=== PATIENT | female | born 1990 | race Caucasian/White ===

== ENCOUNTER 2019-02-23 08:14 | Day surgery (SDC) | payer OTHER ==
[2019-02-23 08:49] VITALS: BP 121/78; TEMP 98.8
[2019-02-23 08:51] VITALS: BMI 30.4
[2019-02-23] MEDS ORDERED: hydrALAZINE 20 MG/ML VIAL SLOW IVP PRN (09:16)
--- NOTE | 2019-02-23 09:25 | PDOC.FPROB ---
FMR OB H&P: HPI - History of Present Illness Chief Complaint: Contractions Indentification: 28 year old at 37.6 wks History of Present Illness: 28 year old at 37.6 wks presents with contractions since 19:00 last night. She states that they were occurring every 2-3 minutes and were very painful, rated as 7/10. She does endorse sexual intercourse prior to contractions. Since coming to the hospital, her contractions have decreased in frequency and intensity, occurring every 10 minutes and rated as a 4/10. Cervical exam in clinic was 1 cm last . Cervical exam today /-. Patient endorses movement. She did note some minor spotting on toilet paper when using the restroom. She denies any leaking of fluid, vaginal discharge. Primary Care Physician: Dr. Cobb FMR OB H&P: Current - Care : 1 Para: 0 Gestational age: 37.6 wks Due date: 03/10/2019 FMR OB H&P: History - Past Medical History PMH: Denies any significant PMH - OB History OB History: G1 - [employer] History [employer] History: Denies history of STD's or PID. - Surgical History Sx History: Right ovarian cyst removal - Social History Social History: Denies alcohol, tobacco, or drug use - Family History Family History: Denies any significant FH FMR OB H&P: Medications - Current Home Medications: Medication Instructions Recorded Confirmed Type Vitamin 1 tablet PO DAILY 02/23/19 02/23/19 History Allergies/Adverse Reactions: Allergies Allergy/AdvReac Type Severity Reaction Status Date / Time cefaclor [From [facility]] Allergy Rash Verified 02/23/19 08:50 FMR OB H&P: ROS - Review of Systems General: denies: fever/chills, weight/appetite/sleep changes Eyes: denies: vision changes, double vision ENT: denies: nasal congestion, sore throat Cardiovascular: denies: chest pain, palpitation, edema Respiratory: denies: cough, congestion, shortness of breath Gastrointestinal: reports: abdominal pain. denies: nausea, vomiting, diarrhea Genitourinary (Female): reports: contractions. denies: dysuria, vaginal discharge, vaginal pain, vaginal bleeding, vaginal pressure Musculoskeletal: denies: pain, stiffness Neurologic: denies: numbness, syncope, seizures Integumentary: denies: itching, rash, lesions Hematologic/Lymphatic: denies: prolonged or excessive bleeding Psychological: denies: depression, anxiety FMR OB H&P: Vital Signs - Maternal Vital signs: Vital Signs - First Documented Temp Pulse Resp BP 98.8 F 110 H 18 121/78 02/23/19 08:32 02/23/19 08:32 02/23/19 08:32 02/23/19 08:32 Pulse prior to D/C 105 - Heart Tones Baseline: 140 Variability: moderate Acceleration: present Deceleration: absent (Questionable variable, but the decrease in HR was coming off an acceleration) Category: category 1 [place] contractions every: q10 min FMR OB H&P: Physical Exam - Physical Exam General: NAD, awake, alert and oriented HEENT: MMM, grossly normal vision, grossly normal hearing Heart: pulses present Deviation from normal: Tachycardic General: no respiratory distress Abdomen: soft, gravid, non-tender Musculoskeletal: pulses present, FROM in all four extremities Neurological: no tremor, no focal deficit Skin: no rash, capillary refill <2 seconds Lymphatic: no unusual bruising or bleeding Psychiatric: intact recent and remote memory, good judgement and insight, normal mood and affect - Pelvic Exam SVE: FMR OB H&P: A/P - Problem List (1) Term Status: Acute Code(s): Z34.90 - ENCNTR FOR SUPRVSN OF NORMAL , UNSP, UNSP TRIMESTER Disposition: 28 year old at 37.6 wks presents with contractions TIUP - Does not appear to be in labor at this time; cervical exam unchanged from clinic visit on 02/20 () - Frequency and intensity of contractions last night likely 2/2 intercourse - Counseled extensively on return/labor precautions - No complications in current - Next appt with Dr. Cobb on , 02/27; plan for scheduled eIOL at that time per patient Dispo: Discharge home with labor precautions. Discussion: Date/Time: 02/23/19 0920 This H&P was discussed with Dr. Ortega who agrees with the above documentation and plan. Signature: Jessica Mccain, PGY-3 Addendum - Attending - Attending Attestation Date/Time: 02/23/19 [id number] I personally evaluated the patient and discussed the management with Dr. Mccain. I agree with the History, Examination, Assessment and Plan documented above.
== END 2019-02-23 09:24 | disposition home or self-care (01) ==
LOC: L&D/OP 08:14
PROVIDERS: ATTEND Student in an Organized Health Care Education/Training Program
DX: O47.1 False labor at or after 37 completed weeks of gestation (principal); Z3A.37 37 weeks gestation of pregnancy; Z88.1 Allergy status to other antibiotic agents
CPT/HCPCS: 99282

== ENCOUNTER 2019-02-24 15:53 | Inpatient (IN) | payer OTHER ==
[~2019-02-24 15:53] MED LIST: Lidocaine 2% MPF 10 ML AMP (For Epidural Use) ONE
[2019-02-24 16:49] VITALS: BMI 29.5
[2019-02-24 17:01] LABS: Hemoglobin 12.2 g/dL (12.0-16.0); Mean Corpuscular HGB CONC 32.4 g/dL (32.0-36.0); Mean Corpuscular Hemoglobin 29.1 pg (27.0-31.0); Mean Corpuscular Volume 89.8 fL (78.0-98.0); Mean Platelet Volume 7.9 fL (7.4-10.4); Platelet Count 190 thou/uL (130-400); RBC Distribution Width 11.9 % (11.5-14.5); White Blood Cell (WBC) Count 13.7 thou/uL (4.8-10.8)
[2019-02-24] MEDS ORDERED: Butorphanol Tartrate 1 MG/ML VIAL ONE (17:11)
[2019-02-24] MEDS ORDERED: Acetaminophen 500 MG TAB PO PRN (17:18)
[2019-02-24] MEDS ORDERED: Ondansetron PF 4 MG/2 ML Vial IVP PRN (17:18)
[2019-02-24] MEDS ORDERED: Butorphanol Tartrate 1 MG/ML VIAL SLOW IVP PRN (17:18)
[2019-02-24] MEDS ORDERED: Promethazine HCl 25 MG/ML VIAL IM PRN (17:18)
[2019-02-24] MEDS ORDERED: hydrALAZINE 20 MG/ML VIAL SLOW IVP PRN (17:18)
[2019-02-24] MEDS ORDERED: Fentanyl 4 mcg/Bup 0.1% Cadd 100 ML ONE (17:20)
[2019-02-24] MEDS: Lactated Ringer's 1,000 ML IV SCH ×3 (17:28→19:42)
[2019-02-24] MEDS ORDERED: Carboprost 250 MCG/ML AMP IM PRN (17:30)
[2019-02-24] MEDS ORDERED: NS w/ Oxytocin 10 units 500 ML IV SCH ×2 (17:30)
[2019-02-24] MEDS ORDERED: Misoprostol 200 MCG TAB RC PRN (17:30)
[2019-02-24] MEDS ORDERED: Lidocaine 1% (PF) 30 ML VIAL SC PRN (17:30)
[2019-02-24] MEDS ORDERED: Ibuprofen 800 MG TAB PO PRN (17:30)
[2019-02-24] MEDS ORDERED: Methylergonovine 0.2 MG/ML VIAL IM PRN (17:30)
--- NOTE | 2019-02-24 17:36 | PDOC.LDHP ---
Labor and Delivery H&P Chief complaint: contractions HPI: 28yo at 38w0d by LMP with painful ctx since this am q 2-3min, no VB LOF. Current gestational age (weeks): 38 Due date: 03/10/19 Dating criteria: first trimester ultrasound Grav: 1 Para: 0 Current complications: none Abnormal US findings: No Current medications: pre-jackson vitamins Previous surgical history: other Allergies/Adverse Reactions: Allergies Allergy/AdvReac Type Severity Reaction Status Date / Time cefaclor [From Ceclor] Allergy Rash Verified 02/23/19 08:50 Social history: none - Physical Exam Vital signs reviewed and normal: yes General: NAD Heart: RRR Lungs: CTAB Abdomen: gravid Extremeties: no edema FHT: category 1 [place] contractions every: 4min - Vaginal Exam cm dilated: 4 Effacement: 90% Station: -1 (arom clear) - OB Labs RH: positive Antibody Screen: negative HIV: negative RPR: negative HEPSAg: negative 1 hour GCT: negative GBS: negative Urine drug screen: negative Rubella: immune - Assessment L&D Assessment: term patient in labor - Plan Plan: admit to L&D, labor augmentation if indicated, informed consent obtained, anesthesia consult for pain management
[2019-02-24 17:42] LABS: HBSAg Index 0.16 S/CO (0-0.99); Hep B Surf Ag Non-Reactive S/CO (NonReactive)
[2019-02-24 17:44] LABS: Syphilis Antibody Nonreactive (Nonreactive); Syphilis Antibody Index 0.04 S/CO (<1.00 Non-Reactive)
[2019-02-24] MEDS ORDERED: Lidocaine 1% (PF) 30 ML VIAL ONE (22:33)
[2019-02-24] MEDS: NS / Oxytocin 40 units/1000ml 1,000 ML IV SCH (23:58)
--- NOTE | 2019-02-25 00:02 | PDOC.OPDEL ---
OB Operative/Delivery Note Delivery Dr/Surgeon: Reza Pre-Delivery Diagnosis: active labor Procedure/Post Delivery Dx: spontaneous vaginal delivery Weeks gestation: 38 Anesthesia: epidural - Findings A Sex: female - 1 min: 8 - 5 min: 9 - Additional Findings/Plan Placenta delivered: spontaneous Repaired Obstetrical Laceration: none Estimated blood loss: 300 Post delivery plan: routine recovery
[2019-02-25] MEDS: NS / Oxytocin 40 units/1000ml 1,000 ML IV SCH (01:59)
[2019-02-25] MEDS ORDERED: HYDROcodone/Acetaminophen 5/325 mg Tablet PO PRN ×2 (05:19)
[2019-02-25] MEDS ORDERED: NS / Oxytocin 40 units/1000ml 1,000 ML IV SCH (05:19)
[2019-02-25] MEDS ORDERED: Adacel (T-DAP) 0.5 ML SYRINGE IM ONE (05:19)
[2019-02-25] MEDS ORDERED: Ondansetron PF 4 MG/2 ML Vial IVP PRN (05:19)
[2019-02-25] MEDS ORDERED: diphenhydrAMINE 25 MG CAP PO PRN (05:19)
[2019-02-25] MEDS ORDERED: Preparation H Ointment 28 GM TUBE PR PRN (05:19)
[2019-02-25] MEDS ORDERED: Bisacodyl 10 MG SUPP PR PRN (05:19)
[2019-02-25] MEDS ORDERED: Promethazine HCl 25 MG/ML VIAL IM PRN (05:19)
[2019-02-25] MEDS ORDERED: hydrALAZINE 20 MG/ML VIAL SLOW IVP PRN (05:19)
[2019-02-25] MEDS ORDERED: Benzocaine-Menthol 82.5 ML CAN TOP PRN (05:19)
[2019-02-25] MEDS ORDERED: Milk Of Magnesia 30 ML UDCUP PO PRN (05:19)
[2019-02-25] MEDS: Ibuprofen 800 MG TAB PO SCH ×3 (06:56→21:04)
--- NOTE | 2019-02-25 08:10 | PDOC.PP ---
Post Progress Note Post Day #: 1 PO intake tolerated: yes Flatus: yes Ambulation: yes Weight Weight 156 lb 5.503 oz - Physical Examination General: NAD Respiratory: non-labored breathing Abdominal: no distention, appropriately TTP Fundus firm & at: umb Skin: no rash Neurological: no gross focal deficits Psychiatric: normal affect Result Diagrams: 02/24/19 16:52 Additional Labs: Post Labs Blood Type O POSITIVE 02/24/19 17:25 Hep Bs Antigen Non-Reactive S/CO (NonReactive) 02/24/19 16:52 - Assessment/Plan PPD1 s/p TSVD VSSAF Doing well, lochia appropriate, pain controlled Rh pos RImm Cont PP care, home tomorrow
[2019-02-25] MEDS ORDERED: FLU VACC QS2019-20(6MOS UP)/PF 60 MCG/0.5 ML SYRINGE IM ONE (09:00)
[2019-02-25] MEDS: Ferrous Sulfate 325 MG TAB PO SCH (19:17)
[2019-02-25] MEDS: Prenatal Vitamin 1 TAB PO SCH (19:17)
[2019-02-25] MEDS: Docusate Calcium (SURFAK) 240 MG CAP PO SCH ×2 (19:17→21:04)
[2019-02-26] MEDS: Ibuprofen 800 MG TAB PO SCH ×2 (05:24→14:07)
[2019-02-26] MEDS ORDERED: Lanolin Ointment 7 GM TUBE TOP PRN (05:35)
--- NOTE | 2019-02-26 08:10 | PDOC.PP ---
Post Progress Note Post Day #: 2 Subjective: No concerns. Doing well. Minimal pain and lochia. Currently breast feeding. PO intake tolerated: yes Flatus: yes Ambulation: yes Vital Signs (12 hours) Temp Pulse Resp BP Pulse Ox 02/26/19 05:39 98.1 F 93 18 105/67 02/25/19 20:36 98.4 F 93 20 100/53 L 98 Weight Weight 156 lb 5.503 oz - Physical Examination General: NAD Cardiovascular: RRR Respiratory: non-labored breathing Abdominal: no distention, appropriately TTP Fundus firm & at: not performed due to currently breast feeding- per RN has been wnl Extremities: negative homans (B) Neurological: no gross focal deficits Psychiatric: A&Ox3, normal affect Result Diagrams: 02/24/19 16:52 Additional Labs: Post Labs Blood Type O POSITIVE 02/24/19 17:25 Hep Bs Antigen Non-Reactive S/CO (NonReactive) 02/24/19 16:52 (1) Vaginal delivery Code(s): O80 - ENCOUNTER FOR FULL-TERM UNCOMPLICATED DELIVERY Status: Acute - Assessment/Plan PPD2 VSSAF Meeting requirements for d/c Plan for d/c this PM
[2019-02-26 08:49] VITALS: BP 118/67; TEMP 98.7
[2019-02-26] MEDS: Ferrous Sulfate 325 MG TAB PO SCH (09:21)
[2019-02-26] MEDS: Prenatal Vitamin 1 TAB PO SCH (09:35)
[2019-02-26] MEDS: Docusate Calcium (SURFAK) 240 MG CAP PO SCH (09:35)
== END 2019-02-26 15:21 | disposition home or self-care (01) | DRG 807 ==
LOC: L&D 15:53 → 3SW 02-25 15:21
PROVIDERS: ADMIT Student in an Organized Health Care Education/Training Program; ATTEND Student in an Organized Health Care Education/Training Program
PROC: 10E0XZZ Delivery of Products of Conception, External Approach (ICD-10-PCS; principal; 2019-02-24)
DX: O80 Encounter for full-term uncomplicated delivery (principal); Z37.0 Single live birth; Z3A.38 38 weeks gestation of pregnancy
CPT/HCPCS: 36415; 51702; 85027; 86780; 86850; 86900; 86901; 87340; J0595; J2001